=== PATIENT | male | born 1955 | race Asian ===

== ENCOUNTER 2018-12-19 11:30 | Day surgery (SDC) | payer BC ==
[~2018-12-19] VITALS: Ht 170.2 cm; Wt 110.3 kg
[~2018-12-19 11:30] MED LIST: PROPOFOL 200 MG INJ ONE
[2018-12-19 12:11] VITALS: Ht 170.2 cm; Wt 110.3 kg
[2018-12-19] MEDS ORDERED: SIMVASTATIN (12:16)
[2018-12-19] MEDS ORDERED: AMLODIPINE (12:16)
[2018-12-19] MEDS ORDERED: LOSARTAN (12:16)
[2018-12-19] MEDS ORDERED: HCTZ (12:16)
[2018-12-19] MEDS ORDERED: ASA81 (12:16)
[2018-12-19 12:17] VITALS: BP 126/75; PULSE 70; RESP 16
[2018-12-19] MEDS ORDERED: LIDOCAINE 2% (SDV) 5 ML INJ ONE (14:02)
[2018-12-19] MEDS ORDERED: PROPOFOL 60 ML ONE (14:02)
--- NOTE | 2018-12-19 14:07 | PREAC ---
Date/Time of Note Date/Time of Note DATE: 12/19/18 TIME: 14:04 Anesthesia Eval and Record Evaluation Time Pre-Procedure Interview DATE: 12/19/18 TIME: 14:04 Age 63 Sex male NPO: 8 hrs Preoperative diagnosis H/O colon Polyps Planned procedure Colonoscopy Past Medical History Past Medical History: Includes Cardio: HTN, Dyslipidemia Pulm: Sleep Apnea GI: Morbid obesity Surgery & Anesthesia Issues No known issue Meds Anticoagulation: No Beta Sneha within 24 hr: No Reason Beta Sneha not given: Pt. not on B-Sneha Reported Medications [Simvastatin] No Conflict Check 12/19/18 [Asa81] No Conflict Check 12/19/18 [Hctz] No Conflict Check 12/19/18 [Amlodipine] No Conflict Check 12/19/18 [Losartan] No Conflict Check 12/19/18 Meds reviewed: Yes Allergies Coded Allergies: No Known Allergy (Unverified , 12/19/18) Allergies Reviewed: Yes Labs/Studies Labs Reviewed: Reviewed by anesthesiologist test: N/A Studies: ECG Pre-procedure Exam Last vitals Vital Signs Date Temp Pulse Resp B/P (MAP) Pulse Ox O2 O2 Flow FiO2 Time Delivery Rate 12/19/18 97.9 70 16 126/75 96 Room Air 12:17 (92) Airway: Adequate mouth opening, Adequate thyromental dist Mallampati: Mallampati III Teeth: Normal Lung: Normal Heart: Normal ASA Physical Status ASA physical status: 3 Emergency: None Planned Anesthetic General/MAC: MAC Planned Pain Management Parenteral pain med Pre-operative Attestations Prior to commencing anesthesia and surgery, the patient was re-evaluated, there was verification of: *The patient's identity *The results of appropriate recent lab work and preoperative vital signs *The above evaluation not changing prior to induction *Anesthetic plan, risk benefits, alternative and complications discussed with patient/family; questions answered; patient/family understands, accepts and wishes to proceed. RAFIA BELL MD Dec 19, 2018 14:07
--- NOTE | 2018-12-19 14:24 | PAC ---
Date/Time of Note Date/Time of Note DATE: 12/19/18 TIME: 14:23 Post-Anesthesia Notes Post-Anesthesia Note Last documented vital signs Vital Signs Date Temp Pulse Resp B/P (MAP) Pulse Ox O2 O2 Flow FiO2 Time Delivery Rate 12/19/18 97.9 70 16 126/75 96 Room Air 12:17 (92) Activity: WNL Respiratory function: WNL Cardiovascular function: WNL Mental status: Baseline Pain reasonably controlled: Yes Hydration appropriate: Yes Nausea/Vomiting absent: Yes Comments BP:124/67, P:89, Spo2:100%,T:98,8 RAFIA BELL MD Dec 19, 2018 14:24
[2018-12-19 14:47] VITALS: BP 132/83; PULSE 69; RESP 18
== END 2018-12-19 15:10 | disposition home or self-care (01) ==
LOC: GIL 11:30
PROVIDERS: ATTEND Internal Medicine Gastroenterology
DX: Z12.11 Encounter for screening for malignant neoplasm of colon (principal); K57.30 Diverticulosis of large intestine without perforation or abscess without bleeding; K64.8 Other hemorrhoids; E78.5 Hyperlipidemia, unspecified; I10 Essential (primary) hypertension; Z86.010 Personal history of colon polyps
CPT/HCPCS: 45378; Z7610